=== PATIENT | female | born 1960 | race Caucasian/White ===

== ENCOUNTER 2020-04-02 13:37 | Emergency (ER) | payer MEDICARE ==
[2020-04-02] MEDS ORDERED: Dexamethasone 10 MG/ML VIAL ONE (14:06)
== END 2020-04-02 14:10 | disposition home or self-care (01) ==
LOC: MADERS 13:37
DX: L50.0 Allergic urticaria (principal); I10 Essential (primary) hypertension; Z79.82 Long term (current) use of aspirin; Z79.899 Other long term (current) drug therapy
CPT/HCPCS: 96372; 99282; J1100